=== PATIENT | female | born 1975 | race Two or more races ===

== ENCOUNTER 2023-06-30 20:23 | Emergency (ER) | payer SELFPAY ==
[~2023-06-30] VITALS: Ht 157.5 cm; Wt 109.0 kg
[2023-06-30 20:58] LABS: Urine Bacteria FEW /hpf (None Seen); Urine Blood 2+ /uL (Negative); Urine Clarity Clear (Clear); Urine Color Colorless (Yellow); Urine Protein, UAD Negative (Negative); Urine Specific Gravity 1.007 (1.001-1.035); Urine Urobilinogen Normal (Negative); Urine WBC 9 /hpf (0 - 5)
[2023-06-30] MEDS ORDERED: NITR-87 PO (23:22)
[2023-06-30] MEDS ORDERED: ZOFR4T PO (23:22)
[2023-06-30] MEDS ORDERED: IBUP-1455 PO (23:22)
[2023-06-30] MEDS ORDERED: TAMS-35 PO (23:22)
[2023-06-30] MEDS ORDERED: ACE3T PO (23:23)
[2023-06-30] MEDS: NITROFURANTOIN 100 mg CAP PO ONE (23:25)
[2023-06-30] MEDS: TAMSULOSIN HYDROCHLORIDE 0.4 MG CAP PO ONE (23:25)
[2023-06-30] MEDS: KETOROLAC TROMETH 60MG/2ML VIAL IM ONE (23:31)
[2023-06-30 23:37] VITALS: BP 154/74; PULSE 90; RESP 18; TEMP 98.1; O2SAT 97
== END 2023-06-30 23:39 | disposition home or self-care (01) ==
LOC: ER 20:23
DX: N20.0 Calculus of kidney (principal); N39.0 Urinary tract infection, site not specified
CPT/HCPCS: 74176; 81001; 96372; 99285; J1885